=== PATIENT | male | born 1955 | race Caucasian/White ===

== ENCOUNTER 2019-11-17 18:14 | Inpatient (IN) | payer SELFPAY ==
[~2019-11-17] VITALS: Ht 165.1 cm; Wt 68.9 kg
[2019-11-17] MEDS ORDERED: METO-396 PO (18:25)
[2019-11-17] MEDS ORDERED: KEPP500 PO (18:25)
[2019-11-17] MEDS ORDERED: PHEN100C4 PO (18:25)
[2019-11-17] MEDS ORDERED: SODIUM CHLORIDE 0.9% 1,000 ML IV ONE (18:33)
[2019-11-17] MEDS ORDERED: LEVETIRACETAM 1000MG/100ML 100 ML IV ONE (19:15)
[2019-11-17 19:27] LABS: BG BASE EXCESS -0.6 mmol/L (-2.0-2.0); BG CARBOXYHEMOGLOBIN 0.6 % (0.5-1.5); BG DEOXYHEMOGLOBIN 4.6 % (0.0-5.0); BG FRACTION INSPIRED OXYGEN 21; BG HCO3 ACT 23.7 mmol/L (22.0-26.0); BG METHEMOGLOBIN 0.5 % (0.0-1.5); BG OXYGEN SATURATION 95.3 % (92.0-98.5); BG OXYHEMOGLOBIN 94.3 % (94.0-97.0); BG PCO2 38.2 mmHg (35.0-45.0); BG PH 7.411 (7.350-7.450); BG PO2 76.2 mmHg (75.0-100.0); BG SAMPLE SITE RIGHT RADIAL; BG TOTAL HEMOGLOBIN 15.4 g/dL (12.0-18.0); BG VENT MODE ROOM AIR
[2019-11-17 19:49] LABS: BASOPHILS % 0.1 % (0.0-2.0); EOSINOPHILS % 0.1 % (0.0-5.0); HEMATOCRIT. 40.6 % (42.0-52.0); HEMOGLOBIN. 14.2 g/dL (14.0-18.0); LYMPHOCYTES % 9.2 % (20.0-50.0); MEAN CORPUSCULAR HEMOGLOBIN 31.5 pg (28.0-32.0); MEAN CORPUSCULAR VOLUME 89.9 fL (80.0-94.0); MEAN PLATELET VOLUME 8.7 fl (7.4-10.4); MONOCYTES % 9.7 % (2.0-8.0); NEUTROPHILS % 80.9 % (40.0-76.0); PLATELET 230 x1000/uL (130-400); RED BLOOD CELL COUNT 4.52 mill/uL (4.7-6.1); RED CELL DISTRIBUTION WIDTH 12.6 % (11.6-14.6)
[2019-11-17 19:52] LABS: CHLORIDE 108 mEq/L (98-107)
[2019-11-17 19:55] LABS: PROTHROMBIN TIME 10.6 sec (9.6-11.0)
[2019-11-17 19:56] LABS: ETHANOL BLOOD < 10 mg/dL
[2019-11-17 19:59] LABS: CREATINE KINASE MB FRACTION 6.9 ng/mL (0.5-3.6)
[2019-11-17] MEDS ORDERED: KCL 10MEQ/50ML PREMIX 50 ML IV ONE (20:00)
[2019-11-17 20:09] LABS: CARBAMAZEPINE < 0.5 ug/mL (4-12); PHENOBARBITAL < 2.1 ug/mL (15.0-40.0); VALPROIC ACID < 3.0 ug/mL (50-100)
[2019-11-17 20:12] LABS: CREATINE KINASE 1054 IU/L (39-308)
[2019-11-17] MEDS ORDERED: DOCUSATE SODIUM 100MG CAPSULE PO PRN (20:30)
[2019-11-17] MEDS ORDERED: ACETAMINOPHEN 325MG TABLET PO PRN (20:30)
[2019-11-17] MEDS ORDERED: LORAZEPAM 2MG/ML CPJ IV PRN (20:30)
[2019-11-17] MEDS ORDERED: HYDROCODONE/ACETAMINOPHEN 5/325MG TABLET PO PRN (20:30)
[2019-11-17] MEDS ORDERED: GUAIFENESIN 200MG/10ML SUGAR FREE UDC PO PRN (20:30)
[2019-11-17] MEDS ORDERED: MAGNESIUM/ALUMINUM HYDROXIDE/SIMETHICONE 30ML UDC PO PRN (20:30)
[2019-11-17] MEDS ORDERED: ONDANSETRON HCL 4MG/2ML INJ IV PRN (20:30)
[2019-11-17] MEDS: CLONIDINE 0.1MG TABLET PO PRN (21:43)
[2019-11-17 22:24] VITALS: BP 161/111
[2019-11-18] MEDS ORDERED: SODIUM CHLORIDE 0.9% 1,000 ML IV NR
[2019-11-18] MEDS ORDERED: LEVETIRACETAM 500 MG in SODIUM CHLORIDE 0.9% 100 ML IV SCH (00:15)
[2019-11-18 00:18] VITALS: BP 172/104
[2019-11-18] MEDS ORDERED: PHENYTOIN SODIUM 500 MG in SODIUM CHLORIDE 0.9% 50 ML IV NR (01:00)
[2019-11-18] MEDS: DEXT 5%/0.45% NACL KCL 10MEQ/L 1,000 ML IV SCH ×2 (01:27→08:46)
[2019-11-18 04:00] VITALS: BP 146/97
[2019-11-18 06:44] LABS: CHLORIDE 110 mEq/L (98-107)
[2019-11-18 06:59] LABS: BASOPHILS % 0.3 % (0.0-2.0); EOSINOPHILS % 0.9 % (0.0-5.0); HEMOGLOBIN. 13.5 g/dL (14.0-18.0); LYMPHOCYTES % 13.2 % (20.0-50.0); MEAN CORPUSCULAR HEMOGLOBIN 32.3 pg (28.0-32.0); MEAN CORPUSCULAR VOLUME 90.6 fL (80.0-94.0); MEAN PLATELET VOLUME 9.2 fl (7.4-10.4); NEUTROPHILS % 74.6 % (40.0-76.0); PLATELET 202 x1000/uL (130-400); RED CELL DISTRIBUTION WIDTH 12.7 % (11.6-14.6)
[2019-11-18 08:37] VITALS: BP 158/98
[2019-11-18] MEDS: LEVETIRACETAM 500MG PREMIX 100 ML IV SCH ×2 (08:46→20:59)
[2019-11-18] MEDS ORDERED: PHENYTOIN SODIUM 100MG/2ML VIAL IV SCH (14:00)
[2019-11-18 15:34] VITALS: BP 129/95
[2019-11-18 20:00] VITALS: BP 137/87
[2019-11-18] MEDS: METOPROLOL TARTRATE 50MG TABLET PO SCH (20:59)
[2019-11-18] MEDS: AMLODIPINE 5MG TABLET PO SCH (20:59)
[2019-11-18] MEDS: PHENYTOIN 100 MG/4 ML UDC PO SCH (21:00)
[2019-11-19] VITALS (7 sets, daily range): BP systolic 137–175; BP diastolic 93–108
[2019-11-19] MEDS: DEXT 5%/0.45% NACL KCL 10MEQ/L 1,000 ML IV SCH ×2 (00:14→21:52)
[2019-11-19] MEDS: CLONIDINE 0.1MG TABLET PO PRN ×2 (00:24→06:30)
[2019-11-19] MEDS: PHENYTOIN 100 MG/4 ML UDC PO SCH ×3 (06:29→22:00)
[2019-11-19 07:15] LABS: CREATINE KINASE 596 IU/L (39-308)
[2019-11-19] MEDS: AMLODIPINE 5MG TABLET PO SCH ×2 (09:58→21:00)
[2019-11-19] MEDS: METOPROLOL TARTRATE 50MG TABLET PO SCH ×2 (09:58→21:00)
[2019-11-19] MEDS: LEVETIRACETAM 500MG PREMIX 100 ML IV SCH ×2 (09:58→21:52)
[2019-11-19] MEDS: HYDRALAZINE 20MG/ML VIAL IV PRN (21:52)
[2019-11-19] MEDS ORDERED: LABETALOL 5MG/ML SYR 20 MG/4 ML SYRINGE IV PRN (23:15)
[2019-11-20] VITALS (8 sets, daily range): BP systolic 148–168; BP diastolic 95–108
[2019-11-20] MEDS: ENALAPRIL 2.5MG/2ML VIAL 2ML IV PRN ×2 (04:58→13:39)
[2019-11-20] MEDS: PHENYTOIN 100 MG/4 ML UDC PO SCH (05:11)
[2019-11-20 07:28] LABS: BASOPHILS % 0.2 % (0.0-2.0); EOSINOPHILS % 0.2 % (0.0-5.0); HEMATOCRIT. 37.6 % (42.0-52.0); HEMOGLOBIN. 13.3 g/dL (14.0-18.0); LYMPHOCYTES % 9.5 % (20.0-50.0); MEAN CORPUSCULAR HEMOGLOBIN 31.8 pg (28.0-32.0); MEAN PLATELET VOLUME 8.7 fl (7.4-10.4); MONOCYTES % 9.7 % (2.0-8.0); NEUTROPHILS % 80.4 % (40.0-76.0); PLATELET 249 x1000/uL (130-400); RED BLOOD CELL COUNT 4.18 mill/uL (4.7-6.1)
[2019-11-20 07:36] LABS: CHLORIDE 109 mEq/L (98-107)
[2019-11-20] MEDS: METOPROLOL TARTRATE 50MG TABLET PO SCH ×2 (09:00→20:54)
[2019-11-20] MEDS: AMLODIPINE 5MG TABLET PO SCH ×2 (09:00→20:53)
[2019-11-20] MEDS: LEVETIRACETAM 500MG PREMIX 100 ML IV SCH ×2 (09:19→20:53)
[2019-11-20] MEDS: DEXT 5%/0.45% NACL KCL 10MEQ/L 1,000 ML IV SCH ×2 (09:21→20:52)
[2019-11-20] MEDS ORDERED: POTASSIUM CHLORIDE INJ 40 MEQ in DEXT 5% WATER 250 ML IV SCH (12:00)
[2019-11-20] MEDS: PHENYTOIN SODIUM 100MG/2ML VIAL IV SCH ×2 (13:42→21:46)
[2019-11-20] MEDS: HYDRALAZINE 20MG/ML VIAL IV PRN (23:47)
[2019-11-21] VITALS (7 sets, daily range): BP systolic 78–171; BP diastolic 47–107
[2019-11-21] MEDS: HYDRALAZINE 20MG/ML VIAL IV PRN ×2 (05:59→13:56)
[2019-11-21] MEDS: PHENYTOIN SODIUM 100MG/2ML VIAL IV SCH ×3 (06:00→21:38)
[2019-11-21 06:27] LABS: BASOPHILS % 0.1 % (0.0-2.0); EOSINOPHILS % 0.6 % (0.0-5.0); HEMATOCRIT. 38.3 % (42.0-52.0); HEMOGLOBIN. 13.5 g/dL (14.0-18.0); LYMPHOCYTES % 7.2 % (20.0-50.0); MEAN CORPUSCULAR HEMOGLOBIN 31.7 pg (28.0-32.0); MEAN PLATELET VOLUME 8.6 fl (7.4-10.4); MONOCYTES % 10.4 % (2.0-8.0); NEUTROPHILS % 81.7 % (40.0-76.0); PLATELET 255 x1000/uL (130-400); RED BLOOD CELL COUNT 4.26 mill/uL (4.7-6.1)
[2019-11-21 06:44] LABS: CHLORIDE 108 mEq/L (98-107)
[2019-11-21] MEDS: METOPROLOL TARTRATE 50MG TABLET PO SCH ×4 (08:38→21:38)
[2019-11-21] MEDS: LEVETIRACETAM 500MG PREMIX 100 ML IV SCH ×2 (08:38→21:38)
[2019-11-21] MEDS: AMLODIPINE 5MG TABLET PO SCH ×4 (08:39→21:38)
[2019-11-21] MEDS ORDERED: POTASSIUM CHLORIDE INJ 40 MEQ in DEXT 5% WATER 250 ML IV SCH (11:00)
[2019-11-21] MEDS: PANTOPRAZOLE SODIUM 40 MG/VIAL IV SCH (11:17)
[2019-11-21] MEDS: DEXT 5%/0.45% NACL KCL 10MEQ/L 1,000 ML IV SCH ×2 (11:17→23:50)
[2019-11-22] VITALS: BP 157/101
[2019-11-22] MEDS: HYDRALAZINE 20MG/ML VIAL IV PRN ×2 (01:14→08:47)
[2019-11-22 04:00] VITALS: BP 160/94
[2019-11-22 05:45] LABS: BASOPHILS % 0.1 % (0.0-2.0); EOSINOPHILS % 0.2 % (0.0-5.0); HEMATOCRIT. 36.6 % (42.0-52.0); HEMOGLOBIN. 12.8 g/dL (14.0-18.0); LYMPHOCYTES % 8.4 % (20.0-50.0); MEAN CORPUSCULAR HEMOGLOBIN 31.7 pg (28.0-32.0); MEAN CORPUSCULAR VOLUME 90.8 fL (80.0-94.0); MEAN PLATELET VOLUME 9.1 fl (7.4-10.4); MONOCYTES % 11.3 % (2.0-8.0); PLATELET 256 x1000/uL (130-400); RED BLOOD CELL COUNT 4.03 mill/uL (4.7-6.1)
[2019-11-22] MEDS: PHENYTOIN SODIUM 100MG/2ML VIAL IV SCH ×3 (06:20→22:38)
[2019-11-22 06:34] LABS: CHLORIDE 107 mEq/L (98-107)
[2019-11-22 08:00] VITALS: BP 142/98
[2019-11-22] MEDS: PANTOPRAZOLE SODIUM 40 MG/VIAL IV SCH (08:46)
[2019-11-22] MEDS: LEVETIRACETAM 500MG PREMIX 100 ML IV SCH ×2 (08:47→22:39)
[2019-11-22] MEDS: METOPROLOL TARTRATE 50MG TABLET PO SCH ×3 (08:47→22:38)
[2019-11-22] MEDS: AMLODIPINE 5MG TABLET PO SCH ×3 (08:48→22:38)
[2019-11-22] MEDS: CHLORPROMAZINE HCL 25 MG TABLET PO PRN (11:59)
[2019-11-22 12:00] VITALS: BP 147/92
[2019-11-22] MEDS: METOCLOPRAMIDE HCL 10MG/2ML VIAL IV SCH ×2 (12:32→18:48)
[2019-11-22] MEDS: DEXT 5%/0.45% NACL KCL 10MEQ/L 1,000 ML IV SCH (12:32)
[2019-11-22 13:20] LABS: VITAMIN B12 SERUM 978 pg/mL (211-911)
[2019-11-22 16:00] VITALS: BP 114/86
[2019-11-22 20:00] VITALS: BP 163/97
[2019-11-22] MEDS: CLONIDINE 0.1MG TABLET PO PRN (22:38)
[2019-11-23] VITALS: BP 163/100
[2019-11-23] MEDS: METOCLOPRAMIDE HCL 10MG/2ML VIAL IV SCH ×5 (00:18→23:32)
[2019-11-23] MEDS: HYDRALAZINE 20MG/ML VIAL IV PRN ×2 (01:36→23:33)
[2019-11-23] MEDS: DEXT 5%/0.45% NACL KCL 10MEQ/L 1,000 ML IV SCH ×2 (02:08→15:50)
[2019-11-23 04:00] VITALS: BP 142/89
[2019-11-23] MEDS: PHENYTOIN SODIUM 100MG/2ML VIAL IV SCH ×3 (05:44→21:30)
[2019-11-23 08:00] VITALS: BP 141/96
[2019-11-23] MEDS: METOPROLOL TARTRATE 50MG TABLET PO SCH ×2 (08:49→21:30)
[2019-11-23] MEDS: AMLODIPINE 5MG TABLET PO SCH ×2 (08:49→21:30)
[2019-11-23] MEDS: LEVETIRACETAM 500MG PREMIX 100 ML IV SCH ×2 (09:32→21:35)
[2019-11-23] MEDS: FAMOTIDINE 20MG/2ML VIAL IV SCH ×2 (09:32→21:30)
[2019-11-23] MEDS: CHLORPROMAZINE HCL 25 MG TABLET PO PRN ×2 (10:13→23:32)
[2019-11-23 11:47] VITALS: BP 133/84
[2019-11-23 16:00] VITALS: BP 138/99
[2019-11-23] MEDS: DILTIAZEM HCL 30MG TABLET PO SCH ×2 (18:42→23:32)
[2019-11-23 20:00] VITALS: BP 146/100
[2019-11-23] MEDS: CLONIDINE 0.1MG TABLET PO PRN (21:32)
[2019-11-24] VITALS (24 sets, daily range): BP systolic 56–151; BP diastolic 29–110
[2019-11-24 05:33] LABS: CLARITY URINE CLEAR (CLEAR); COLOR URINE DARK YELLOW (YELLOW); KETONES URINE TRACE (NEGATIVE); LEUKOCYTE ESTERASE URINE TRACE (NEGATIVE); NITRITE URINE POSITIVE (NEGATIVE); OCCULT BLOOD URINE NEGATIVE (NEGATIVE); PH URINE 5.5 (4.5-8.0); PROTEIN URINE 1+ (NEGATIVE); SPECIFIC GRAVITY URINE 1.038 (1.005-1.030)
[2019-11-24] MEDS: DILTIAZEM HCL 30MG TABLET PO SCH ×2 (05:36→11:22)
[2019-11-24] MEDS: PHENYTOIN SODIUM 100MG/2ML VIAL IV SCH (05:36)
[2019-11-24] MEDS: METOCLOPRAMIDE HCL 10MG/2ML VIAL IV SCH ×2 (05:36→11:21)
[2019-11-24] MEDS: DEXT 5%/0.45% NACL KCL 10MEQ/L 1,000 ML IV SCH (05:37)
[2019-11-24 06:22] LABS: CHLORIDE 108 mEq/L (98-107); HEMATOCRIT. 39.7 % (42.0-52.0); HEMOGLOBIN. 13.8 g/dL (14.0-18.0); MEAN CORPUSCULAR VOLUME 92.2 fL (80.0-94.0); MEAN PLATELET VOLUME 8.9 fl (7.4-10.4); PLATELET 275 x1000/uL (130-400); RED BLOOD CELL COUNT 4.31 mill/uL (4.7-6.1); RED CELL DISTRIBUTION WIDTH 13.3 % (11.6-14.6)
[2019-11-24] MEDS ORDERED: LIDOCAINE HCL 1% 20ML VIAL (Pyxis) INJ ONE (08:22)
[2019-11-24] MEDS ORDERED: PROPOFOL 10MG/ML 100ML 100 ML IV PRN (08:45)
[2019-11-24] MEDS: AMLODIPINE 5MG TABLET PO SCH (09:00)
[2019-11-24] MEDS ORDERED: IPRATROPIUM/ALBUTEROL 0.5-3(2.5)MG/3ML NEB HHN PRN (09:00)
[2019-11-24] MEDS: METOPROLOL TARTRATE 50MG TABLET PO SCH (09:00)
[2019-11-24] MEDS ORDERED: PHENYLEPHRINE 40 MG in DEXT 5% WATER 246 ML IV PRN (09:00)
[2019-11-24 09:49] LABS: BG CARBOXYHEMOGLOBIN 0.2 % (0.5-1.5); BG FRACTION INSPIRED OXYGEN 100; BG HCO3 ACT 18.3 mmol/L (22.0-26.0); BG METHEMOGLOBIN 0.5 % (0.0-1.5); BG OXYGEN SATURATION 79.9 % (92.0-98.5); BG OXYHEMOGLOBIN 79.3 % (94.0-97.0); BG PCO2 62.3 mmHg (35.0-45.0); BG PH 7.085 (7.350-7.450); BG PO2 59.5 mmHg (75.0-100.0); BG SAMPLE SITE RIGHT RADIAL; BG TIDAL VOLUME(mL) 500 mL; BG TOTAL HEMOGLOBIN 12.5 g/dL (12.0-18.0); BG VENT MODE VENT - A/C; BG VENT RATE 18 set
[2019-11-24] MEDS ORDERED: PHENYLEPHRINE 80 MG in DEXT 5% WATER 492 ML IV PRN (10:00)
[2019-11-24] MEDS ORDERED: METRONIDAZOLE 500 MG PREMIX 100 ML IV SCH (10:00)
[2019-11-24] MEDS ORDERED: CEFEPIME 1,000 MG in DEXTROSE 5% WATER 50 ML IV SCH (10:00)
[2019-11-24] MEDS ORDERED: SODIUM BICARBONATE 8.4% 1 MEQ/ML 50ML SYR IV SCH (10:15)
[2019-11-24] MEDS: FAMOTIDINE 20MG/2ML VIAL IV SCH (10:20)
[2019-11-24] MEDS ORDERED: PANTOPRAZOLE SODIUM 40 MG/VIAL IV SCH (10:30)
[2019-11-24] MEDS: LEVETIRACETAM 500MG PREMIX 100 ML IV SCH (10:57)
[2019-11-24] MEDS ORDERED: NOREPINEPHRINE 16 MG in DEXT 5% WATER 234 ML IV PRN (11:45)
[2019-11-24 11:47] LABS: PLATELET ESTIMATE NORMAL
[2019-11-24] MEDS ORDERED: IPRATROPIUM/ALBUTEROL 0.5-3(2.5)MG/3ML NEB HHN SCH (12:00)
== END 2019-11-24 12:01 | disposition expired | DRG 720 ==
LOC: ER 18:14 → 6WST 19:56 → ENRESERV 21:04 → 5WST 11-18 11:10 → 5EST 11-24 08:25
PROVIDERS: ADMIT Hospitalist; ATTEND Hospitalist
PROC: 5A12012 Performance of Cardiac Output, Single, Manual (ICD-10-PCS; principal; 2019-11-24)
PROC: 5A1935Z Respiratory Ventilation, Less than 24 Consecutive Hours (ICD-10-PCS; 2019-11-24)
PROC: 0BH18EZ Insertion of Endotracheal Airway into Trachea, Via Natural or Artificial Opening Endoscopic (ICD-10-PCS; 2019-11-24)
PROC: 05HY33Z Insertion of Infusion Device into Upper Vein, Percutaneous Approach (ICD-10-PCS; 2019-11-24)
PROC: B54MZZA Ultrasonography of Right Upper Extremity Veins, Guidance (ICD-10-PCS; 2019-11-24)
DX: A41.9 Sepsis, unspecified organism (principal); J96.01 Acute respiratory failure with hypoxia; J69.0 Pneumonitis due to inhalation of food and vomit; R65.21 Severe sepsis with septic shock; G93.40 Encephalopathy, unspecified; G91.9 Hydrocephalus, unspecified; E72.20 Disorder of urea cycle metabolism, unspecified; E44.0 Moderate protein-calorie malnutrition; G93.89 Other specified disorders of brain; E86.0 Dehydration; E87.6 Hypokalemia; G40.909 Epilepsy, unspecified, not intractable, without status epilepticus; I10 Essential (primary) hypertension; I47.1 Supraventricular tachycardia; M62.82 Rhabdomyolysis; R13.10 Dysphagia, unspecified; Z74.01 Bed confinement status; I69.354 Hemiplegia and hemiparesis following cerebral infarction affecting left non-dominant side; Z68.25 Body mass index [BMI] 25.0-25.9, adult; Z79.899 Other long term (current) drug therapy
CPT/HCPCS: 36415; 36600; 70551; 71045; 72170; 74018; 76937; 80053; 80156; 80165; 80184; 80185; 80307; 80320; 80329; 81003; 82140; 82375; 82550; 82553; 82607; 82805; 82962; 83735; 83880; 84443; 84484; 85025; 92610; 93005; 93880; 93970; 95816; 99291; C1725; C9113; J0360; J0692; J1165; J1953; J2060; J2370; J2704; J2765; J3480; J3490; J7030; J7060; Q0161; G0480